=== PATIENT | female | born 1955 | race African-American/Black ===

== ENCOUNTER 2025-03-29 09:12 | Inpatient (IN) | payer OTHER ==
[2025-03-29 09:41] VITALS: BMI 18.8
[2025-03-29] MEDS ORDERED: METHOCARBAMOL 500 MG TABLET PO PRN (09:50)
[2025-03-29] MEDS ORDERED: BENZOCAINE/MENTHOL (CHLORASEPTIC ) LOZENGE MM PRN (09:50)
[2025-03-29] MEDS ORDERED: guaiFENesin 600 MG TABLET.ER (FP) PO PRN (09:50)
[2025-03-29] MEDS ORDERED: IBUPROFEN 400 MG TABLET (FP) PO PRN (09:50)
[2025-03-29] MEDS ORDERED: ONDANSETRON *ODT* 4 MG TABLET SL PRN (09:50)
[2025-03-29] MEDS ORDERED: IBUPROFEN 600 MG TABLET (FP) PO PRN (09:50)
[2025-03-29] MEDS ORDERED: LOPERAMIDE HCL 2 MG CAPSULE PO PRN (09:50)
[2025-03-29] MEDS ORDERED: POLYETHYLENE GLYCOL (HEALTHYLAX) 3350 17 GM PACKET PO PRN (09:50)
[2025-03-29] MEDS ORDERED: hydrOXYzine PAMOATE 25 MG CAPSULE (FP) PO PRN (09:50)
[2025-03-29] MEDS ORDERED: NALOXONE (NARCAN) HCL 4 MG/0.1 ML SPRAY NS PRN (09:50)
[2025-03-29] MEDS ORDERED: NICOTINE POLACRILEX 2 MG GUM BUC PRN (09:50)
[2025-03-29] MEDS ORDERED: ACETAMINOPHEN 325 MG TABLET (FP) PO PRN (09:50)
[2025-03-29] MEDS ORDERED: MAGNESIUM HYDROX 2400MG/30ML ORAL SUSPENSION 30 ML CUP PO PRN (09:50)
[2025-03-29] MEDS ORDERED: BISMUTH SUBSALICYLATE 262 MG/15 ML BTL PO PRN (09:50)
[2025-03-29] MEDS ORDERED: MAG HYDROX/AL HYDROX/SIMETH 30 ML UNIT-DOSE CUP PO PRN (09:50)
[2025-03-29] MEDS ORDERED: DICYCLOMINE HCL 10 MG CAPSULE PO PRN (09:50)
[2025-03-29] MEDS ORDERED: BENZONATATE 200 MG CAPSULE PO PRN (09:50)
[2025-03-29] MEDS ORDERED: ALBUTEROL SO4 HFA INHALER IH PRN (09:52)
[2025-03-29] MEDS ORDERED: ATORVASTATIN CA 80 MG TABLET (FP) PO SCH (10:00)
[2025-03-29] MEDS: NICOTINE 14 MG/24 HOURS TOPICAL PATCH TD SCH (10:23)
[2025-03-29] MEDS ORDERED: PRENATAL VITAMINS W/ FOLIC ACID TABLET (FP) PO ONE (10:25)
[2025-03-29] MEDS: PRENATAL VITAMINS W/ FOLIC ACID TABLET (FP) PO SCH (10:28)
[2025-03-29] MEDS: LIPASE/PROTEASE/AMYLASE 36,000 UNIT CAPSULE PO SCH (11:41)
[2025-03-29] MEDS: ATORVASTATIN CA 80 MG TABLET (FP) PO SCH (11:41)
[2025-03-29] MEDS ORDERED: BACLOFEN 10 MG TABLET (FP) PO PRN (13:07)
[2025-03-29] MEDS: MIRTAZAPINE 15 MG TABLET (FP) PO SCH (22:34)
[2025-03-29] MEDS: MELATONIN 5 MG TABLETS PO SCH (22:34)
[2025-03-29] MEDS: THIAMINE 100 MG TABLET PO SCH (22:34)
[2025-03-30 11:44] LABS: MCHC 31.3 g/dl (32.2-35.5); MEAN CELL VOLUME 95.0 fl (79.4-94.8); MEAN PLT VOLUME 12.8 fl (9.4-12.3); RDW 12.8 % (12.4-16.4)
[2025-03-30 13:40] LABS: CO2 32.0 mmol/L (21-32); GLUCOSE,RANDOM 59.0 mg/dL (74-106)
[2025-03-30 13:43] LABS: CREATININE 0.8 mg/dL (0.55-1.3); SGOT/AST 31.0 U/L (15-37); SGPT/ALT 34.0 U/L (13-61); TOT PROT 6.6 g/dl (6.4-8.2)
[2025-03-30 13:46] LABS: ALK PHOS 69.0 U/L (45-117)
[2025-04-03 09:41] VITALS: BP 102/70; PULSE 64; RESP 14; TEMP 98.4
== END 2025-04-03 10:03 | disposition home or self-care (01) | DRG 897 ==
LOC: YASAS 09:12 → Y3N 10:29
PROVIDERS: ADMIT Family Medicine; ATTEND Allergy & Immunology
PROC: HZ2ZZZZ Detoxification Services for Substance Abuse Treatment (ICD-10-PCS; principal; 2025-03-29)
DX: F10.230 Alcohol dependence with withdrawal, uncomplicated (principal); F11.23 Opioid dependence with withdrawal; F43.10 Post-traumatic stress disorder, unspecified; E78.5 Hyperlipidemia, unspecified; F41.9 Anxiety disorder, unspecified
CPT/HCPCS: 36415; 80053; 80305; 80307; 85027; 86780; 93005; 93010